=== PATIENT | male | born 1970 | race Caucasian/White ===

== ENCOUNTER 2019-11-06 19:06 | Emergency (ER) | payer OTHER ==
[~2019-11-06] VITALS: Ht 182.9 cm; Wt 88.9 kg
[~2019-11-06 19:06] MED LIST: ALBU90OI INH; ASPI81EC PO; IBUP400 PO
[2019-11-06] MEDS ORDERED: MONT10T PO (22:15)
[2019-11-06] MEDS ORDERED: GABA100 PO (22:16)
[2019-11-06] MEDS ORDERED: LISI20 PO (22:17)
[2019-11-06] MEDS ORDERED: BREO ELLIPTA 11 EAC1 INH (22:18)
== END 2019-11-06 22:20 | disposition home or self-care (01) ==
LOC: ER 19:06
DX: S61.412A Laceration without foreign body of left hand, initial encounter (principal); Z79.899 Other long term (current) drug therapy; Z23 Encounter for immunization; W45.8XXA Other foreign body or object entering through skin, initial encounter
CPT/HCPCS: 73130; 90471; 90714; 99283-25

== ENCOUNTER 2024-03-21 13:57 | Emergency (ER) | payer OTHER ==
[~2024-03-21] VITALS: Ht 172.7 cm; Wt 81.7 kg
[~2024-03-21 13:57] MED LIST changes: +BREO ELLIPTA 11 EAC1 INH; +FLONASE ALLERG9.9 M2; +GABA100 PO; +LISI20 PO; +MONT10T PO; +TADA10TA PO; +ZYRTEC10 M2 PO
[2024-03-21 14:09] VITALS: BP 121/89
[2024-03-21] MEDS ORDERED: Ketorolac Tromethamine 15mg Vial IM ONE (14:15)
[2024-03-21 14:35] LABS: Source, Urine Clean Catch
[2024-03-21 14:39] LABS: Appearance, Urine Clear (Clear); Bilirubin, Urine Neg (Neg); Blood, Urine 2+ (Neg); Color, Urine Yellow (P-Yellow); Glucose Qualitative, Urine Neg (Neg); Ketones, Urine 2+ (Neg); Leukocyte Esterase, Urine Neg (Neg); Nitrite, Urine Neg (Neg); Protein, Urine 2+ (Neg); Urobilinogen, Urine 1+ (Normal)
[2024-03-21 15:39] LABS: Bacteria Rare /hpf; Mucus Mod (0-Heavy); Squamous Epithelial Cells Rare /hpf (Few); White Blood Cells, Urine 0-2 /hpf (0-5)
[2024-03-21] MEDS ORDERED: BENZ100A PO (16:12)
[2024-03-21] MEDS ORDERED: IBUP600 PO (16:12)
== END 2024-03-21 16:32 | disposition home or self-care (01) ==
LOC: ER 13:57
PROVIDERS: Student in an Organized Health Care Education/Training Program
DX: J06.9 Acute upper respiratory infection, unspecified (principal); J45.909 Unspecified asthma, uncomplicated; I10 Essential (primary) hypertension; Z79.899 Other long term (current) drug therapy
CPT/HCPCS: 81001; 96372; 99283-25; J1885